=== PATIENT | female | born 1955 | race Caucasian/White ===

== ENCOUNTER 2017-04-18 18:40 | Observation (INO) | payer MEDICARE ==
[2017-04-18 18:45] VITALS: BP 104/54; PULSE 100; RESP 14; TEMP 98.4; O2SAT 98
[2017-04-18 18:50] VITALS: BP 117/58; PULSE 61; RESP 14; O2SAT 98
[2017-04-18] MEDS ORDERED: METF1000 PO (19:16)
[2017-04-18] MEDS ORDERED: VENL75CA44 PO (19:16)
[2017-04-18] MEDS ORDERED: SACU1TAB7 PO (19:16)
[2017-04-18] MEDS ORDERED: VITA200C3 PO (19:16)
[2017-04-18] MEDS ORDERED: FURO20TA PO (19:16)
[2017-04-18] MEDS ORDERED: ENAL10TA PO (19:16)
[2017-04-18] MEDS ORDERED: N7030SS SQ (19:16)
[2017-04-18] MEDS ORDERED: MOBI15TA PO (19:16)
[2017-04-18] MEDS ORDERED: POTA10CA PO (19:16)
[2017-04-18] MEDS ORDERED: SPIR25TA PO (19:16)
[2017-04-18] MEDS ORDERED: ATOR10TA15 PO (19:16)
[2017-04-18] MEDS ORDERED: VITA250T3 PO (19:16)
[2017-04-18] MEDS ORDERED: TRAM50TA PO (19:16)
[2017-04-18] MEDS ORDERED: VITA500T4 PO (19:16)
[2017-04-18] MEDS ORDERED: CARV6.252 PO (19:16)
[2017-04-18] MEDS ORDERED: DIGO0.12 PO (19:16)
[2017-04-18] MEDS ORDERED: ALPR1TAB3 PO ×2 (19:16)
[2017-04-18] MEDS ORDERED: GEMF600T PO (19:16)
[2017-04-18] MEDS ORDERED: RANO500 PO (19:16)
[2017-04-18] MEDS ORDERED: LEVO50TA4 PO (19:16)
[2017-04-18] MEDS ORDERED: ONDANSETRON HCL 4 MG/2 ML VIAL IV PUSH ONE (19:30)
[2017-04-18 19:52] LABS: AUTOMATED NEUTROPHIL # 3.1 TH/MM3 (1.8-7.7); BASOPHIL % 0.5 % (0.0-2.0); EOSINOPHIL # 0.1 TH/MM3 (0-0.4); EOSINOPHIL % 1.9 % (0.0-4.0); HEMATOCRIT 35.6 % (35.0-46.0); HEMOGLOBIN 11.8 GM/DL (11.6-15.3); LYMPH % 40.8 % (9.0-44.0); LYMPHOCYTE # 2.6 TH/MM3 (1.0-4.8); MEAN CELL VOLUME 92.9 FL (80.0-100.0); MEAN CORPUSCULAR HEMOGLOBIN 30.9 PG (27.0-34.0); MEAN CORPUSCULAR HGB CONC 33.3 % (32.0-36.0); MONO % 8.4 % (0.0-8.0); MONOCYTE # 0.5 TH/MM3 (0-0.9); NEUT % 48.4 % (16.0-70.0); PLATELET COUNT 240 TH/MM3 (150-450); RED BLOOD COUNT 3.83 MIL/MM3 (4.00-5.30); RED CELL DISTRIBUTION WIDTH 13.3 % (11.6-17.2); WHITE BLOOD COUNT 6.4 TH/MM3 (4.0-11.0)
--- NOTE | 2017-04-18 19:52 | PD ---
HPI Chief Complaint: Cardiac Complaint Time Seen by Provider: 19:15 Travel History International Travel<30 days: No Contact w/Intl Traveler<30days: No Traveled to known affect area: No History of Present Illness HPI 62 year-old female presents to the emergency department by EMS transportation for evaluation of throat tightness and difficulty speaking and swallowing approximately 45 minutes prior to arrival to the emergency department. Patient also complains of chest tightness and nausea. Patient also complains of shortness of breath. Patient has history of CAD, CHF, diabetes and recently was started on Entresto on Sunday for CHF management and because of recent low back pain started on Mobic and tramadol. Patient yesterday had episodes of vomiting and today was very nauseated before onset of throat tightness and chest tightness. Patient has no tightness at this time. Son at bedside states that this came on suddenly that she became very pale there was no syncope and no seizure activity. There was no trauma or injury. Patient states she feels back to her baseline except for mild nausea and generalized weakness. Patient denies any chest tightness throat tightness or referred neck jaw back shoulder arm pain or tightness. No abdominal pain at this time. Patient's also experienced some mild diarrhea yesterday. Patient's had no bilious emesis hematemesis coffee-ground emesis melena hematochezia. Patient takes no blood thinning agents. Reportedly upon arrival to the emergency department discomfort as 9/10 in intensity and presently is 3/10 in intensity. PFSH Past Medical History Narrative Medical Anxiety depression CHF (10% EF status post infusions 55% EF most recently EF 30 % started on Entresto) dyslipidemia hypothyroidism eyes surgery occasional alcohol use: Nursing notes reviewed Anxiety: Yes Depression: Yes High Cholesterol: Yes Congestive Heart Failure: Yes Diabetes: Yes Patient Takes Glucophage: Yes Hypertension: Yes Insomnia: Yes Thyroid Disease: Yes Influenza Vaccination: No : 4 Para: 2 Miscarriage: 2 Tubal Ligation: Yes Past Surgical History Eye Surgery: Yes (CATARACTS) Social History Alcohol Use: Yes Tobacco Use: No Substance Use: No Allergies-Medications (Allergen,Severity, Reaction): Coded Allergies: No Known Allergies (Unverified , 04/18/17) Reported Meds & Prescriptions Reported Meds & Active Scripts Active Reported Entresto (Sacubitril-Valsartan) 49-51 Mg Tab 1 Tab PO BID Tramadol (Tramadol HCl) 50 Mg Tab 50 Mg PO Q8H PRN Vitamin B-12 (Cyanocobalamin) 500 Mcg Tab 10,000 Mcg PO DAILY Vitamin C (Ascorbic Acid) 250 Mg Tab 1,000 Mg PO DAILY Vitamin E 200 Unit Cap 400 Units PO DAILY Furosemide 20 Mg Tab 20 Mg PO BID Alprazolam 1 Mg Tab 4 Mg PO HS Alprazolam 1 Mg Tab 1 Mg PO DAILY Carvedilol 6.25 Mg Tab 6.25 Mg PO BID Novolin 70/30 Inj (Insulin Human Isoph/Insulin Regular) 1,000 Units/10 Ml Inj 30 Unit SQ ACHS Atorvastatin (Atorvastatin Calcium) 10 Mg Tab 10 Mg PO HS Metformin (Metformin HCl) 1,000 Mg Tab 1,000 Mg PO DAILY With a meal Enalapril (Enalapril Maleate) 10 Mg Tab 10 Mg PO BID Ranexa ER 12 HR (Ranolazine) 500 Mg Tab 500 Mg PO BID Spironolactone 25 Mg Tab 25 Mg PO DAILY Digoxin 0.125 Mg Tab 0.125 Mg PO DAILY Venlafaxine ER 24 HR (Venlafaxine HCl) 75 Mg Cap 75 Mg PO DAILY Levothyroxine (Levothyroxine Sodium) 50 Mcg Tab 50 Mcg PO DAILY Potassium Chloride ER (Potassium Chloride) 10 Meq Cap 10 Meq PO DAILY Mobic (Meloxicam) 15 Mg Tab 15 Mg PO DAILY Review of Systems Except as stated in HPI: all other systems reviewed are Neg General / Constitutional: No: Fever, Chills Eyes: No: Visual changes HENT: Positive: Other (throat tightness), No: Headaches, Lightheadedness, Sore Throat, Congestion, Neck Stiffness Cardiovascular: Positive: Chest Pain or Discomfort (throat tightness), No: Diaphoresis, Syncope Respiratory: Positive: Shortness of Breath, No: Cough, Orthopnea Gastrointestinal: Positive: Nausea, Vomiting, Diarrhea, No: Abdominal Pain Genitourinary: No: Frequency, Dysuria, Dyspareunia Musculoskeletal: No: Edema, Pain Skin: No Rash Neurologic: Positive: Weakness, No: Dizziness, Syncope, Focal Abnormalities, Coordination Problem, Slurred Speech (difficulty speaking), Paresthesia Psychiatric: Positive: Anxiety Endocrine: No: Heat Intolerance Hematologic/Lymphatic: No: Easy Bruising Physical Exam Narrative GENERAL: Well-developed well-nourished female in no acute distress no respiratory distress normal speech without dysarthria or aphasia: GCS 15 SKIN: Warm and dry. HEAD: Atraumatic. Normocephalic. EYES: Pupils equal and round. No scleral icterus. No injection or drainage. ENT: No nasal bleeding or discharge. Mucous membranes pink and moist. NECK: Trachea midline. No JVD. CARDIOVASCULAR: Regular rate and rhythm. RESPIRATORY: No accessory muscle use. Clear to auscultation. Breath sounds equal bilaterally. GASTROINTESTINAL: Abdomen soft, non-tender, nondistended. Hepatic and splenic margins not palpable. MUSCULOSKELETAL: Extremities without clubbing, cyanosis, or edema. No obvious deformities. NEUROLOGICAL: Awake and alert. No obvious cranial nerve deficits. Motor grossly within normal limits. Five out of 5 muscle strength in the arms and legs. No limb ataxia. No pronator drift. Normal speech. PSYCHIATRIC: Appropriate mood and affect; insight and judgment normal. Data Data Last Documented VS Vital Signs Date Time Temp Pulse Resp B/P (MAP) Pulse Ox O2 Delivery O2 Flow Rate FiO2 04/18/17 18:50 61 14 117/58 (77) 98 Room Air 04/18/17 18:45 98.4 Orders Orders Electrocardiogram (04/18/17 19:15) Basic Metabolic Panel (Bmp) (04/18/17 19:15) Ckmb (Isoenzyme) Profile (04/18/17 19:15) Complete Blood Count With Diff (04/18/17 19:15) Magnesium (Mg) (04/18/17 19:15) Prothrombin Time / Inr (Pt) (04/18/17 19:15) Act Partial Throm Time (Ptt) (04/18/17 19:15) Troponin I (04/18/17 19:15) Chest, Single Ap (04/18/17 19:15) Ecg Monitoring (04/18/17 19:15) Bilateral Bp Monitoring (04/18/17 19:15) Iv Access Insert/Monitor (04/18/17 19:15) Oximetry (04/18/17 19:15) Oxygen Administration (04/18/17 19:15) Ondansetron Inj (Zofran Inj) (04/18/17 19:30) B-Type Natriuretic Peptide (04/18/17 19:18) CKMB (04/18/17 19:30) CKMB% (04/18/17 19:30) Ct Brain W/O Iv Contrast(Rout) (04/18/17 ) Ct Abd/Pel W/O Iv Contrast (04/18/17 ) Ns (Bolus) Inj (04/18/17 21:15) Labs Laboratory Tests Test 04/18/17 19:30 White Blood Count 6.4 TH/MM3 Red Blood Count 3.83 MIL/MM3 Hemoglobin 11.8 GM/DL Hematocrit 35.6 % Mean Corpuscular Volume 92.9 FL Mean Corpuscular Hemoglobin 30.9 PG Mean Corpuscular Hemoglobin Concent 33.3 % Red Cell Distribution Width 13.3 % Platelet Count 240 TH/MM3 Mean Platelet Volume 9.0 FL Neutrophils (%) (Auto) 48.4 % Lymphocytes (%) (Auto) 40.8 % Monocytes (%) (Auto) 8.4 % Eosinophils (%) (Auto) 1.9 % Basophils (%) (Auto) 0.5 % Neutrophils # (Auto) 3.1 TH/MM3 Lymphocytes # (Auto) 2.6 TH/MM3 Monocytes # (Auto) 0.5 TH/MM3 Eosinophils # (Auto) 0.1 TH/MM3 Basophils # (Auto) 0.0 TH/MM3 CBC Comment DIFF FINAL Differential Comment Prothrombin Time 10.0 SEC Prothromb Time International Ratio 1.0 RATIO Activated Partial Thromboplast Time 27.1 SEC Blood Urea Nitrogen 33 MG/DL Creatinine 1.79 MG/DL Random Glucose 377 MG/DL Calcium Level 8.8 MG/DL Magnesium Level 1.6 MG/DL Sodium Level 134 MEQ/L Potassium Level 5.2 MEQ/L Chloride Level 99 MEQ/L Carbon Dioxide Level 24.8 MEQ/L Anion Gap 10 MEQ/L Estimat Glomerular Filtration Rate 29 ML/MIN Total Creatine Kinase 1430 U/L Creatine Kinase MB 19.1 NG/ML Creatine Kinase MB % 1.3 % Troponin I LESS THAN 0.02 NG/ML B-Type Natriuretic Peptide 44 PG/ML MDM Medical Decision Making Medical Screen Exam Complete: Yes Emergency Medical Condition: Yes Medical Record Reviewed: Yes Interpretation(s) CBC & BMP Diagram 04/18/17 19:30 Calcium Level 8.8, Magnesium Level 1.6 Vital Signs Date Time Temp Pulse Resp B/P (MAP) Pulse Ox O2 Delivery O2 Flow Rate FiO2 04/18/17 18:50 61 14 117/58 (77) 98 Room Air 04/18/17 18:45 98.4 100 14 104/54 (71) 98 Troponin I: Less than 0.02, not elevated; CK: 1430, elevated Differential Diagnosis Chest pain, ACS, NV, CHF, PE, TIA, CVA, adverse medication reaction Narrative Course Patient placed on night monitor continuous pulse oximetry; EKG performed shows sinus bradycardia rate [address]-T changes no acute ST elevation or injury pattern; patient administered Zofran 4 mg IV Physician Communication Physician Communication call placed to [facility] service Diagnosis Primary Impression: Generalized weakness Additional Impressions: Non-traumatic rhabdomyolysis Adverse drug reaction Acute kidney injury Admitting Information Admitting Physician Requests: Admit Gabriela Martin MD Apr 18, 2017 19:52
[2017-04-18 20:09] LABS: BICARBONATE 24.8 MEQ/L (21.0-32.0); BLOOD UREA NITROGEN 33 MG/DL (7-18); CALCIUM 8.8 MG/DL (8.5-10.1); CHLORIDE 99 MEQ/L (98-107); CREATININE 1.79 MG/DL (0.50-1.00); GLOMERULAR FILTRATION RATE 29 ML/MIN (>89); GLUCOSE,RANDOM 377 MG/DL (74-106); MAGNESIUM 1.6 MG/DL (1.5-2.5); SODIUM (NA) 134 MEQ/L (136-145)
--- NOTE | 2017-04-18 20:21 | RADRPT ---
EXAM DATE/TIME: 04/18/2017 19:45 [facility] COMPARISON: No previous studies available for comparison. INDICATIONS : Chest pain and shortness of breath. MEDICAL HISTORY : Congestive heart failure. SURGICAL HISTORY : None. ENCOUNTER: Initial ACUITY: 1 day PAIN SCORE: 6/10 LOCATION: middle chest. FINDINGS: A single view of the chest demonstrates the lungs to be symmetrically aerated without evidence of mas s, infiltrate or effusion. The cardiomediastinal contours are unremarkable. Osseous structures are intact. CONCLUSION: The lungs are clear. Jim Sierra MD on April 18, 2017 at 20:19 Board Certified Radiologist. This report was verified electronically.
[2017-04-18 20:24] LABS: TROPONIN I LESS THAN 0.02 NG/ML (0.02-0.05)
[2017-04-18] MEDS ORDERED: SODIUM CHLOR 0.9% 250 ML INJ 250 ML IV ONE ×2 (21:15)
[2017-04-18] MEDS ORDERED: INSULIN HUMAN REGULAR 1,000 UNITS/10 ML VIAL SQ ONE (21:15)
[2017-04-18] MEDS ORDERED: BACL10TA PO (21:33)
[2017-04-18 21:34] VITALS: BP 100/55
--- NOTE | 2017-04-18 23:03 | RADRPT ---
EXAM DATE/TIME: 04/18/2017 21:39 [facility] COMPARISON: No previous studies available for comparison. INDICATIONS : Dizziness. RADIATION DOSE: 44.54 CTDIvol (mGy) ; Tabletop CT Head MEDICAL HISTORY : Hypertension. Congestive heart failure. SURGICAL HISTORY : Tubal ligation. ENCOUNTER: Initial ACUITY: 1 day PAIN SCALE: 0/10 LOCATION: cranial TECHNIQUE: Multiple contiguous axial images were obtained of the head. Using automated exposure control and adj ustment of the mA and/or kV according to patient size, radiation dose was kept as low as reasonably a chievable to obtain optimal diagnostic quality images. DICOM format image data is available electro nically for review and comparison. FINDINGS: CEREBRUM: The ventricles are normal for age. No evidence of midline shift, mass lesion, hemorrhage or acute in farction. No extra-axial fluid collections are seen. POSTERIOR FOSSA: The cerebellum and brainstem are intact. The 4th ventricle is midline. The cerebellopontine angle i s unremarkable. EXTRACRANIAL: The visualized portion of the orbits is intact. SKULL: The calvaria is intact. No evidence of skull fracture. CONCLUSION: 1. Negative noncontrast CT brain. Jim Sierra MD on April 18, 2017 at 22:58 Board Certified Radiologist. This report was verified electronically.
--- NOTE | 2017-04-18 23:07 | RADRPT ---
EXAM DATE/TIME: 04/18/2017 21:42 [facility] COMPARISON: No previous studies available for comparison. INDICATIONS : Right flank pain with nausea. ORAL CONTRAST: No oral contrast ingested. RADIATION DOSE: 14.19 CTDIvol (mGy) MEDICAL HISTORY : Hypertension. Congestive heart failure. SURGICAL HISTORY : Tubal ligation. ENCOUNTER: Initial ACUITY: 1 day PAIN SCALE: 5/10 LOCATION: Right flank TECHNIQUE: Renal colic protocol. Volumetric scanning of the abdomen and pelvis was performed. Using automated exposure control and adjustment of the mA and/or kV according to patient size, radiation dose was kep t as low as reasonably achievable to obtain optimal diagnostic quality images. DICOM format image da ta is available electronically for review and comparison. FINDINGS: Right side: No evidence of hydronephrosis or calcified stones. No calcified stones along the course of the right ureter. Left side: No evidence of hydronephrosis or calcified stones. No calcified stones along the course of the left ureter. Bladder: Smooth margins. No calcifications within the lumen. ERP DEVELOPER: Anteverted uterus. There is a 1 cm calcification in left adnexa possibly related to the ovary sugges ting possible dermoid. There is also to calcified phleboliths in the deep left pelvis. No evidence of free fluid. Other: No dilated loops of small or large bowel. CONCLUSION: 1. Negative renal colic CT. 2. 1 cm calcification in the left adnexa, possibly ovarian in origin. Jim Sierra MD on April 18, 2017 at 23:02 Board Certified Radiologist. This report was verified electronically.
[2017-04-19] VITALS (7 sets, daily range): BP systolic 95–122; BP diastolic 41–60; PULSE 60–70; RESP 18–20; TEMP 97.6–98.2; O2SAT 95–98
[2017-04-19] MEDS: SODIUM CHLOR 0.9% 1000 ML INJ 1,000 ML IV SCH ×2 (01:56→08:46)
[2017-04-19] MEDS ORDERED: ALPR0.5T3 PO (01:56)
[2017-04-19] MEDS ORDERED: NALOXONE HCL 0.4 MG/ML AMP IV PUSH PRN (02:00)
[2017-04-19] MEDS ORDERED: ACETAMINOPHEN 325 MG TAB PO PRN (02:00)
[2017-04-19] MEDS ORDERED: MAGNESIUM HYDROXIDE SUSP 30 ML CUP PO PRN (02:00)
[2017-04-19] MEDS ORDERED: SENNOSIDES 8.6 MG TAB PO PRN (02:00)
[2017-04-19] MEDS ORDERED: SODIUM CHLORIDE 0.9% FLUSH 10 ML FLUSH IV FLUSH PRN (02:00)
[2017-04-19] MEDS ORDERED: ONDANSETRON HCL 4 MG/2 ML VIAL IVP PRN (02:00)
[2017-04-19] MEDS ORDERED: GLUCAGON 1 MG/ML VIAL OTHER PRN (02:00)
[2017-04-19] MEDS ORDERED: DEXTROSE 50% IN WATER 50 ML VIAL(D50) IV PUSH PRN (02:00)
[2017-04-19] MEDS ORDERED: traMADol HCL 50 MG TAB PO PRN (02:15)
[2017-04-19] MEDS ORDERED: ALPRAZolam 0.5 MG TAB PO PRN (02:15)
[2017-04-19] MEDS: HEPARIN SODIUM - SQ 10,000 UNITS/ML VIAL SQ SCH ×2 (03:03→08:48)
--- NOTE | 2017-04-19 04:27 | HHI.HP ---
[facility] Service [facility] Primary Care Physician Non-Staff Admission Diagnosis generalized weakness; rhabdomyolysis; DAMIEN Diagnoses: Travel History International Travel<30 Days: No Contact w/Intl Traveler <30 Da: No Traveled to Known Affected Are: No History of Present Illness 62-year-old female with a past medical history significant for CHF (most recent echo showed an EF of 30% per patient), insulin-dependent diabetes mellitus, hypothyroidism, hypertension and hyperlipidemia presents to the emergency department with chest tightness and difficulty breathing. The patient reports that she was sitting at her son's house when she felt her throat tightening up and she had difficulty taking in air. Per her son, the patient suddenly became very pale and he called EMS. The patient reports she is now back to her baseline. She has generalized weakness that has been going on for months. She also complains of nausea with emesis that occurred yesterday. The patient was started on Entresto on Sunday for her CHF. Patient's labs are significant for potassium of 5.2, BUN/creatinine 33/1.79 and a total creatinine kinase of 1430. Review of Systems Denies fever or chills Denies blurry vision, otorrhea, rhinorrhea Denies sore throat and cough No chest pain, palpitations, positive shortness of breath No abdominal pain Denies constipation/diarrhea. Positive nausea/vomiting Denies muscle pain/weakness No rashes Past Family Social History Past Medical History Insulin-dependent diabetes mellitus CHF with last EF of 30% Hypothyroidism Hypertension Hyperlipidemia Past Surgical History Cataract surgery BTL Reported Medications Reported Meds & Active Scripts Active Reported Alprazolam 0.5 Mg Tab 0.5 Mg PO Q8H PRN Baclofen 10 Mg Tab 10 Mg PO BID Gemfibrozil 600 Mg Tab 600 Mg PO DAILY Take 30 minutes prior to breakfast and dinner. Mobic (Meloxicam) 15 Mg Tab 15 Mg PO DAILY Entresto (Sacubitril-Valsartan) 49-51 Mg Tab 1 Tab PO BID Tramadol (Tramadol HCl) 50 Mg Tab 50 Mg PO Q8H PRN Vitamin B-12 (Cyanocobalamin) 500 Mcg Tab 10,000 Mcg PO DAILY Vitamin C (Ascorbic Acid) 250 Mg Tab 1,000 Mg PO DAILY Vitamin E 200 Unit Cap 400 Units PO DAILY Furosemide 20 Mg Tab 20 Mg PO BID Carvedilol 6.25 Mg Tab 6.25 Mg PO BID Novolin 70/30 Inj (Insulin Human Isoph/Insulin Regular) 1,000 Units/10 Ml Inj 30 Unit SQ ACHS Atorvastatin (Atorvastatin Calcium) 10 Mg Tab 10 Mg PO HS Metformin (Metformin HCl) 1,000 Mg Tab 1,000 Mg PO DAILY With a meal Enalapril (Enalapril Maleate) 10 Mg Tab 10 Mg PO BID Ranexa ER 12 HR (Ranolazine) 500 Mg Tab 500 Mg PO BID Spironolactone 25 Mg Tab 25 Mg PO DAILY Digoxin 0.125 Mg Tab 0.125 Mg PO DAILY Venlafaxine ER 24 HR (Venlafaxine HCl) 75 Mg Cap 75 Mg PO DAILY Levothyroxine (Levothyroxine Sodium) 50 Mcg Tab 50 Mcg PO DAILY Potassium Chloride ER (Potassium Chloride) 10 Meq Cap 10 Meq PO DAILY Allergies: Coded Allergies: No Known Allergies (Unverified , 04/18/17) Family History Father with diabetes mellitus Social History Rare alcohol use. Denies tobacco, illicit drugs. Physical Exam Vital Signs Vital Signs Date Time Temp Pulse Resp B/P (MAP) Pulse Ox O2 Delivery O2 Flow Rate FiO2 04/19/17 00:29 97.6 62 18 95/51 (66) 95 04/18/17 21:34 66 20 100/55 (70) 97 04/18/17 18:50 61 14 117/58 (77) 98 Room Air 04/18/17 18:45 98.4 100 14 104/54 (71) 98 Physical Exam GENERAL: female lying in bed SKIN: No rashes, ecchymoses or lesions. Cool and dry. HEAD: Atraumatic. Normocephalic. No temporal or scalp tenderness. EYES: Pupils equal round and reactive. Extraocular motions intact. No scleral icterus. No injection or drainage. ENT: Nose without bleeding, purulent drainage or septal hematoma. Throat without erythema, tonsillar hypertrophy or exudate. Uvula midline. Airway patent. NECK: Trachea midline. No JVD or lymphadenopathy. Supple, nontender, no meningeal signs. CARDIOVASCULAR: Regular rate and rhythm without murmurs, gallops, or rubs. RESPIRATORY: Clear to auscultation. Breath sounds equal bilaterally. No wheezes , rales, or rhonchi. GASTROINTESTINAL: Abdomen soft, non-tender, nondistended. No hepato-splenomegaly , or palpable masses. No guarding. MUSCULOSKELETAL: Extremities without clubbing, cyanosis, or edema. No joint tenderness, effusion, or edema noted. No calf tenderness. NEUROLOGICAL: Awake and alert. Cranial nerves II through XII intact. Motor and sensory grossly within normal limits. Normal speech. Laboratory Laboratory Tests Test 04/18/17 19:30 White Blood Count 6.4 Red Blood Count 3.83 Hemoglobin 11.8 Hematocrit 35.6 Mean Corpuscular Volume 92.9 Mean Corpuscular Hemoglobin 30.9 Mean Corpuscular Hemoglobin Concent 33.3 Red Cell Distribution Width 13.3 Platelet Count 240 Mean Platelet Volume 9.0 Neutrophils (%) (Auto) 48.4 Lymphocytes (%) (Auto) 40.8 Monocytes (%) (Auto) 8.4 Eosinophils (%) (Auto) 1.9 Basophils (%) (Auto) 0.5 Neutrophils # (Auto) 3.1 Lymphocytes # (Auto) 2.6 Monocytes # (Auto) 0.5 Eosinophils # (Auto) 0.1 Basophils # (Auto) 0.0 CBC Comment DIFF FINAL Differential Comment Prothrombin Time 10.0 Prothromb Time International Ratio 1.0 Activated Partial Thromboplast Time 27.1 Blood Urea Nitrogen 33 Creatinine 1.79 Random Glucose 377 Calcium Level 8.8 Magnesium Level 1.6 Sodium Level 134 Potassium Level 5.2 Chloride Level 99 Carbon Dioxide Level 24.8 Anion Gap 10 Estimat Glomerular Filtration Rate 29 Total Creatine Kinase 1430 Creatine Kinase MB 19.1 Creatine Kinase MB % 1.3 Troponin I LESS THAN 0.02 B-Type Natriuretic Peptide 44 Digoxin Level 0.6 Result Diagram: 04/18/17192904/18/171929 Caprini VTE Risk Assessment Caprini VTE Risk Assessment: Mod/High Risk (score >= 2) Caprini Risk Assessment Model Point Value = 1 Point Value = 2 Point Value = 3 Point Value = 5 Age 41-60 Minor surgery BMI > 25 kg/m2 Swollen legs Varicose veins or History of unexplained or recurrent spontaneous Oral contraceptives or hormone replacement Sepsis (< 1 month) Serious lung disease, including pneumonia (< 1 month) Abnormal pulmonary function Acute myocardial infarction Congestive heart failure (< 1 month) History of inflammatory bowel disease Medical patient at bed rest Age 61-74 Arthroscopic surgery Major open surgery (> 45 min) Laparoscopic surgery (> 45 min) Malignancy Confined to bed (> 72 hours) Immobilizing plaster cast Central venous access Age >= 75 History of VTE Family history of VTE Factor V Leiden Prothrombin 25715A Lupus anticoagulant Anticardiolipin antibodies Elevated serum homocysteine Heparin-induced thrombocytopenia Other congenital or acquired thrombophilia Stroke (< 1 month) Elective arthroplasty Hip, pelvis, or leg fracture Acute spinal cord injury (< 1 month) Prophylaxis Regimen Total Risk Factor Score Risk Level Prophylaxis Regimen 0-1 Low Early ambulation 2 Moderate Order ONE of the following: *Sequential Compression Device (SCD) *Heparin 5000 units SQ BID 3-4 Higher Order ONE of the following medications: *Heparin 5000 units SQ TID *Enoxaparin/Lovenox 40 mg SQ daily (WT < 150 kg, CrCl > 30 mL/min) *Enoxaparin/Lovenox 30 mg SQ daily (WT < 150 kg, CrCl > 10-29 mL/min) *Enoxaparin/Lovenox 30 mg SQ BID (WT < 150 kg, CrCl > 30 mL/min) AND/OR *Sequential Compression Device (SCD) 5 or more Highest Order ONE of the following medications: *Heparin 5000 units SQ TID (Preferred with Epidurals) *Enoxaparin/Lovenox 40 mg SQ daily (WT < 150 kg, CrCl > 30 mL/min) *Enoxaparin/Lovenox 30 mg SQ daily (WT < 150 kg, CrCl > 10-29 mL/min) *Enoxaparin/Lovenox 30 mg SQ BID (WT < 150 kg, CrCl > 30 mL/min) AND *Sequential Compression Device (SCD) Assessment and Plan Assessment and Plan Assessment/plan: 1. Rhabdomyolysis CK 1430 IV fluid hydration Trend CK May be secondary to Entresto use Patient denies any recent falls or prolonged periods of immobilization 2. Hyperkalemia Potassium 5.2 No EKG changes, reviewed by me Follow-up BMP 3. DAMIEN Creatinine 1.79, no baseline for comparison IV fluid hydration Monitor renal function Avoid nephrotoxic agents, holding home enalapril 4. CHF Holding Entresto out of concern for adverse reaction Continue home medications 5. Hypertension/hyperlipidemia Continue home medications 6. Hypothyroidism Continue home Synthroid FEN Heart healthy diet NS at 150 cc/hr Electrolytes: as above Heparin Physician Certification 2 Midnight Certification Type: Admission for Inpatient Services Order for Inpatient Services The services are ordered in accordance with Medicare regulations or non- Medicare payer requirements, as applicable. In the case of services not specified as inpatient-only, they are appropriately provided as inpatient services in accordance with the 2-midnight benchmark. Estimated LOS (days): 2 2 days is the estimated time the patient will need to remain in the hospital, assuming treatment plan goals are met and no additional complications. Post-Hospital Plan: Not yet determined Norma Harris MD Apr 19, 2017 04:27
[2017-04-19] MEDS ORDERED: LEVOTHYROXINE SODIUM 50 MCG TAB PO SCH (06:00)
[2017-04-19 07:07] LABS: AUTOMATED NEUTROPHIL # 1.5 TH/MM3 (1.8-7.7); BASOPHIL % 0.4 % (0.0-2.0); EOSINOPHIL # 0.1 TH/MM3 (0-0.4); EOSINOPHIL % 2.5 % (0.0-4.0); HEMATOCRIT 34.4 % (35.0-46.0); HEMOGLOBIN 11.5 GM/DL (11.6-15.3); LYMPH % 55.1 % (9.0-44.0); LYMPHOCYTE # 2.3 TH/MM3 (1.0-4.8); MEAN CELL VOLUME 92.7 FL (80.0-100.0); MEAN CORPUSCULAR HEMOGLOBIN 31.1 PG (27.0-34.0); MEAN CORPUSCULAR HGB CONC 33.5 % (32.0-36.0); MONO % 7.3 % (0.0-8.0); MONOCYTE # 0.3 TH/MM3 (0-0.9); NEUT % 34.7 % (16.0-70.0); PLATELET COUNT 221 TH/MM3 (150-450); RED BLOOD COUNT 3.71 MIL/MM3 (4.00-5.30); RED CELL DISTRIBUTION WIDTH 13.5 % (11.6-17.2); WHITE BLOOD COUNT 4.2 TH/MM3 (4.0-11.0)
[2017-04-19 07:25] LABS: BICARBONATE 27.2 MEQ/L (21.0-32.0); CALCIUM 8.2 MG/DL (8.5-10.1); CREATININE 1.36 MG/DL (0.50-1.00)
[2017-04-19] MEDS: INSULIN ASPART SUPPLEMENTAL SCALE SQ SCH ×2 (08:46→13:13)
[2017-04-19] MEDS ORDERED: SODIUM CHLORIDE 0.9% FLUSH 10 ML FLUSH IV FLUSH SCH (09:00)
[2017-04-19] MEDS ORDERED: ENALAPRIL MALEATE 10 MG TAB PO SCH (09:00)
[2017-04-19] MEDS ORDERED: BACLOFEN 10 MG TAB PO SCH (09:00)
[2017-04-19] MEDS ORDERED: CARVEDILOL 6.25 MG TAB PO SCH (09:00)
[2017-04-19] MEDS ORDERED: SPIRONOLACTONE 25 MG TAB PO SCH (09:00)
[2017-04-19] MEDS ORDERED: FUROSEMIDE 20 MG TAB PO SCH (09:00)
[2017-04-19] MEDS ORDERED: DIGOXIN 0.125 MG TAB PO SCH (09:00)
[2017-04-19] MEDS ORDERED: RANOLAZINE 500 MG EXTENDED RELEASE TAB PO SCH (09:00)
[2017-04-19] MEDS ORDERED: VENLAFAXINE HCL XR 75 MG CAP PO SCH (09:00)
--- NOTE | 2017-04-19 13:36 | HHI.PR ---
Subjective Remarks Follow-up on patient with chest pain, dyspnea, dizziness. Patient seen and examined. Sons at the bedside. Patient states that she has a history of congestive heart failure with EF of 35%. Her lumber sticker is in [place]. She reports a negative cardiac catheterization in 2012. She states she was recently seen at the lumber sticker's office and increased her Enalapril to 15mg BID and started on Entresto which she started taking on Sunday. She reports episode Sunday of "heartburn" followed by nausea and vomiting. Yesterday, she reports increased activity level yesterday cleaning our bird cages. She sat down to talk to her son and suddenly developed midsternal nonradicular chest pain that patient describes as "heartburn". She got up to go get a glass of water and developed shortness of breath, dizziness, nausea and worsening chest pain. Her son called day and her blood pressure at the scene was around 117/50s. She continued to have chest pain for about 30 minutes that resolved by the time she got to our ED. She denies being given any aspirin or nitroglycerin. She has not had any recurrence of chest pain. She currently feels well. She denies any nausea or vomiting. She denies any shortness of breath. She states she occasionally has heartburn after eating spicy foods but states she is not very symptomatic. She is followed by GI and is scheduled to have a colonoscopy in the near future. She's had a previous EGD done many years ago. Objective Vitals Vital Signs Date Time Temp Pulse Resp B/P (MAP) Pulse Ox O2 Delivery O2 Flow Rate FiO2 04/19/17 08:22 98.2 68 20 112/60 (77) 98 04/19/17 08:16 70 04/19/17 04:21 97.7 65 18 111/54 (73) 95 04/19/17 00:29 97.6 62 18 95/51 (66) 95 04/18/17 21:34 66 20 100/55 (70) 97 04/18/17 18:50 61 14 117/58 (77) 98 Room Air 04/18/17 18:45 98.4 100 14 104/54 (71) 98 I/O 04/18/17 04/18/17 04/18/17 04/19/17 04/19/1704/19/17 07:00 15:00 23:00 07:00 15:00 23:00 Intake Total 500 ml 1400 ml Balance 500 ml 1400 ml Intake Oral 400 ml IV Total 500 ml 1000 ml Result Diagram: 04/19/1760404/19/17604 Imaging Last Impressions Chest X-Ray 04/18/17 191 Signed Impressions: Service Date/Time: Tuesday, April 18, 2017 19:45 - CONCLUSION: The lungs are clear. Jim Sierra MD Head CT 04/18/17 0000 Signed Impressions: Service Date/Time: Tuesday, April 18, 2017 21:39 - CONCLUSION: 1. Negative noncontrast CT brain. Jim Sierra MD Abdomen/Pelvis CT 04/18/17 0000 Signed Impressions: Service Date/Time: Tuesday, April 18, 2017 21:42 - CONCLUSION: 1. Negative renal colic CT. 2. 1 cm calcification in the left adnexa, possibly ovarian in origin. Jim Sierra MD Objective Remarks GENERAL: Well-nourished, well-developed female patient in NAD. Awake and alert. SKIN: Warm and dry. No rash. HEAD: Normocephalic. Atraumatic. EYES: EOMI. No scleral icterus. No injection or drainage. ENT: No nasal bleeding or discharge. Mucous membranes pink and moist. NECK: Supple. Trachea midline. CARDIOVASCULAR: Regular rate and rhythm. S1, S2 noted. (+)murmur RESPIRATORY: Nonlabored. Clear to auscultation. Breath sounds equal bilaterally. GASTROINTESTINAL: Abdomen soft, non-tender, nondistended. Normoactive bowel sounds x4. MUSCULOSKELETAL: No obvious deformities. Extremities without clubbing, cyanosis , or edema. NEUROLOGICAL: Awake and alert. Able to move all extremities spontaneously. No focal neurologic finding appreciated. Normal speech. PSYCHIATRIC: Appropriate mood and affect; insight and judgment normal. Medications and IVs Current Medications Medications (Trade) Dose Ordered Sig/Hiren Route Start Time Stop Time Status Last Admin (D50w (Vial) Inj) 50 ml UNSCH PRN IV PUSH 04/19/17 02:00 (Glucagon Inj) 1 mg UNSCH PRN OTHER 04/19/17 02:00 (NovoLOG SUPPLEMENTAL SCALE) 1 ACHS SLIDING SCALE SQ 04/19/17 08:00 04/19/17 08:46 Sodium Chloride 1,000 ml @ 150 mls/hr Q6H40M IV 04/19/17 01:56 04/19/17 08:46 (NS Flush) 2 ml UNSCH PRN IV FLUSH 04/19/17 02:00 (NS Flush) 2 ml BID IV FLUSH 04/19/17 09:00 (Tylenol) 650 mg Q4H PRN PO 04/19/17 02:00 (Zofran Inj) 4 mg Q6H PRN IVP 04/19/17 02:00 (Heparin Inj) 5,000 units Q8H SQ 04/19/17 02:00 04/19/17 08:48 (Narcan Inj) 0.4 mg UNSCH PRN IV PUSH 04/19/17 02:00 (Milk Of Magnpatito Liq) 30 ml Q12H PRN PO 04/19/17 02:00 (Senokot) 17.2 mg Q12H PRN PO 04/19/17 02:00 (Xanax) 0.5 mg Q8H PRN PO 04/19/17 02:15 (Lipitor) 10 mg HS PO 04/19/17 21:00 (Lioresal) 10 mg BID PO 04/19/17 09:00 04/19/17 09:44 (Coreg) 6.25 mg BID PO 04/19/17 09:00 04/19/17 08:47 (Lanoxin) 0.125 mg DAILY PO 04/19/17 09:00 04/19/17 08:47 (Vasotec) 10 mg BID PO 04/19/17 09:00 Future Hold (Lasix) 20 mg BID PO 04/19/17 09:00 04/19/17 08:47 (Synthroid) 50 mcg DAILY@0600 PO 04/19/17 06:00 04/19/17 06:32 (Ranexa) 500 mg BID PO 04/19/17 09:00 04/19/17 09:44 (Aldactone) 25 mg DAILY PO 04/19/17 09:00 04/19/17 08:48 (Ultram) 50 mg Q8H PRN PO 04/19/17 02:15 (Effexor Xr) 75 mg DAILY PO 04/19/17 09:00 04/19/17 08:48 A/P Assessment and Plan Chest pain, atypical r/o ACS - possible demand ischemia, patient hypotensive. Patient is currently chest pain free. - Continuous cardiac monitoring - Consult cardiology, appreciate recommendations - initial troponin negative, CKMB 19.1, CK 1430 - continue to trend Carson and EKG - ASA and Lipitor daily - obtain fasting lipid panel, HgbA1c and TSH Hx of cardiomyopathy with EF 35%, not in acute exacerbation - hold Entresto - d/c IVF - ASA daily - Coreg 6.25mg po BID, Digoxin 0.125mg, Lasix 20mg BID, Aldactone 25mg daily , Ranexa ER 500mg po BID - patient does not appear to be volume overloaded at this time. Continue to monitor. Rhabdomyolysis - CK trending down. Continue to trend. Hypotensive, improved - Orthostatic blood pressure measurements - with parameters Hyperkalemia - Potassium 5.2, now improved to normal - continue to hold Entresto and home potassium supplement DAMIEN - Secondary to increase in ADOLPH dose, recently started on Entresto - Metformin, Mobic, Entresto and Enalapril on hold - Improved on IVF - Continue to monitor kidney function and avoid nephrotoxic agents DM - patient on Novolin 70/30 30u daily - hold Metformin - Accu-Cheks - ISS - obtain HgbA1c Hypothyroidism - Resume patient's levothyroxine 50 g daily - obtain TSH level Chronic low back pain - Continue on baclofen BID and Tramadol as needed DVT prophylaxis - Heparin sq [address] Lua and cleared from cardiology standpoint to be discharged to home. Orthostatics negative. Patient ambulating in the hallway without any complaints of nausea, vomiting, dizziness, lightheadedness, palpitations, chest pain or shortness of breath. Educated patient to increase fluid intake and have kidney function rechecked in the next 3-5 days with primary care physician. Patient also instructed to follow-up with her lumber sticker in 3-5 days. Patient stated understanding. All questions were addressed and answered. Discharge patient to home Heart healthy diabetic diet as tolerated Ad jake activity Rx written: resume home medications except hold Entresto until evaluated by regular lumber sticker per Dr. Lua Follow-up with primary care physician and lumber sticker as outpatient in 3-5 days. Have kidney function re-assessed in 3 to 5 days. Sapna Srivastava Apr 19, 2017 13:36
--- NOTE | 2017-04-19 13:38 | EKG ---
Date Performed: 04/18/2017 Time Performed: 18:59:58 PTAGE: 62 years EKG: SINUS BRADYCARDIA NONSPECIFIC ST & T-WAVE ABNORMALITY BORDERLINE ECG NO PREVIOUS TRACING DOCTOR: Alexei Park Interpretating Date/Time 04/19/2017 13:37:37
--- NOTE | 2017-04-19 15:15 | HHI.DCPOC ---
Discharge Care Plan Diagnosis: (1) Chest pain (2) Hyperkalemia (3) Generalized weakness (4) Acute kidney injury (5) Non-traumatic rhabdomyolysis (6) Adverse drug reaction Goals to Promote Your Health * To prevent worsening of your condition and complications * To maintain your health at the optimal level Directions to Meet Your Goals Per cardiology, recommend stopping the Entresto until re-evaluated by your oncology physician. Recommend increase fluid intake and have your kidney function re-evaluated next week by your primary care physician. Take your medications as prescribed Follow your dietary instruction Follow activity as directed Keep your appointments as scheduled Take your immunizations and boosters as scheduled If your symptoms worsen call your PCP, if no PCP go to Urgent Care Center or Emergency Room Smoking is Dangerous to Your Health. Avoid second hand smoke Call the 24-hour hour crisis hotline for domestic abuse at Sapna Srivastava Apr 19, 2017 15:15
[2017-04-19 15:30] LABS: HEMOGLOBIN A1C 9.6 % (4.3-6.0)
--- NOTE | 2017-04-19 20:01 | MB ---
cc: EPHRAIM YANG MD DATE OF CONSULTATION 04/19/17 REASON FOR CONSULTATION Cardiomyopathy. HISTORY OF PRESENT ILLNESS The patient is a very pleasant 62-year-old woman who lives in the [place] area who has a known history of a nonischemic cardiomyopathy previously quite severe, but she says her ejection fraction most recently has been about 35%. She says that her outside pipe fitter fire sprinkler systems has recently started Entresto and she started taking it on Sunday. On Sunday, she was cleaning bird cages and began feeling a tightness in her throat which caused some sensation of shortness of breath. She presented to the emergency department where her symptoms have resolved. Her troponin was negative, however, her total CK was slightly elevated. She is currently asymptomatic, off oxygen with no residual symptoms. She denies chest pain, residual shortness of breath, lightheadedness or dizziness. PAST MEDICAL HISTORY 1. Nonischemic cardiomyopathy. 2. Systolic congestive heart failure 3. Hypothyroidism, 4. Hypertension 5. Hyperlipidemia, 6. Diabetes 7. Obesity. MEDICATIONS Current, 1. Atorvastatin 10 mg q.h.s. 2. Baclofen 3. Coreg 6.25 mg b.i.d. 4. Digoxin. 5. Lasix 20 mg b.i.d. 6. Ranexa 5900 mg b.i.d. 7. Aldactone 25 mg daily. 8. Effexor. 9. Alprazolam. 10. Ultram. ALLERGIES NO KNOWN DRUG ALLERGIES. PHYSICAL EXAMINATION VITAL SIGNS: Afebrile, pulse 56, respiratory rate 20, BP 112/60 satting 98 room air. GENERAL: Pleasant well-appearing woman in no distress. NECK: No JVD. LUNGS: Clear to auscultation bilaterally. CARDIOVASCULAR: Regular rate and rhythm. No murmurs appreciated. ABDOMEN: Benign. EXTREMITIES: No edema. LABORATORY DATA Sodium 137, potassium 4.8, chloride 102, bicarb 27.8, BUN 31, creatinine 1.36, glucose 286. BNP is 44, troponin negative x1. White count 4.2, hematocrit 34.4, platelets 221. CARDIOLOGY STUDIES EKG was sinus bradycardia with nonspecific ST changes. IMPRESSION 1. Throat tightness/shortness of breath. The patient's symptoms seem most consistent with a reaction to particles from cleaning her birdcages or less likely a reaction to the newly started Entrestor. She is completely asymptomatic now on room air. She has a follow-up appointment with her pipe fitter fire sprinkler systems next week. At this time, my recommendation would be to hold the Entresto for now and have her discuss the situation with her pipe fitter fire sprinkler systems next week and determination at that point can be made whether or not to try restarting the medication. Otherwise, she appears stable from a cardiac standpoint and can be discharged home from my standpoint. Thank you again for the opportunity to participate in this patient's care. MD EMILY Sun/ /2:01 PM /7:32 PM
[2017-04-19] MEDS ORDERED: ATORVASTATIN 10 MG TAB PO SCH (21:00)
--- NOTE | 2017-04-20 23:26 | EKG ---
Date Performed: 04/19/2017 Time Performed: 13:08:58 PTAGE: 62 years EKG: Sinus rhythm NONSPECIFIC ST & T-WAVE ABNORMALITY BORDERLINE ECG PREVIOUS TRACING : 04/18/2017 18.59 Compared to prior tracing no significant change DOCTOR: Tae Fish Interpretating Date/Time 04/20/2017 23:25:40
== END 2017-04-19 16:59 | disposition home or self-care (01) ==
LOC: NEPC 18:40 → NEDA 21:06 → NEPGCP 21:49
PROVIDERS: ADMIT Family Medicine; ATTEND Family Medicine
DX: M62.82 Rhabdomyolysis (principal); E87.5 Hyperkalemia; N17.9 Acute kidney failure, unspecified; R11.2 Nausea with vomiting, unspecified; I25.10 Atherosclerotic heart disease of native coronary artery without angina pectoris; I42.9 Cardiomyopathy, unspecified; I95.9 Hypotension, unspecified; R07.89 Other chest pain; R00.1 Bradycardia, unspecified; R42 Dizziness and giddiness; R19.7 Diarrhea, unspecified; R06.02 Shortness of breath; I50.22 Chronic systolic (congestive) heart failure; I11.0 Hypertensive heart disease with heart failure; E03.9 Hypothyroidism, unspecified; E78.5 Hyperlipidemia, unspecified; E11.9 Type 2 diabetes mellitus without complications; M54.5 Low back pain; G89.29 Other chronic pain; F41.9 Anxiety disorder, unspecified; F32.9 Major depressive disorder, single episode, unspecified; E66.9 Obesity, unspecified; Z79.4 Long term (current) use of insulin; Z79.899 Other long term (current) drug therapy
CPT/HCPCS: 70450; 71010; 74176; 80048; 80162; 82550; 82552; 82948; 83036; 83735; 83880; 84443; 84484; 85025; 85610; 85730; 93005; 96361; 96372; 96374; 99285; G0378; J1644; J1815; J2405; J7030; J7050